=== PATIENT | female | born 2005 | race Caucasian/White ===

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

== ENCOUNTER 2024-01-18 23:12 | Emergency (ER) | payer BC, MEDICAID ==
[~2024-01-18] VITALS: Ht 165.1 cm; Wt 54.5 kg
[2024-01-19 00:44] VITALS: BP 125/77; PULSE 89; RESP 18; O2SAT 99
[2024-01-19] MEDS: LORazepam 1 MG tablet PO ONE (01:53)
[2024-01-19 02:24] VITALS: TEMP 97.4
== END 2024-01-19 02:26 | disposition home or self-care (01) ==
LOC: ER 23:13
DX: F41.9 Anxiety disorder, unspecified (principal); Z88.1 Allergy status to other antibiotic agents
CPT/HCPCS: 99283

== ENCOUNTER 2024-03-12 01:37 | Emergency (ER) | payer BC, MEDICAID ==
[~2024-03-12] VITALS: Ht 165.1 cm; Wt 54.5 kg
[2024-03-12 01:48] VITALS: BP 105/74; PULSE 85; RESP 16; TEMP 98; O2SAT 98
[2024-03-12] MEDS ORDERED: LORazepam 0.5 MG tablet PO PRN (01:55)
== END 2024-03-12 02:40 | disposition home or self-care (01) ==
LOC: ER 01:38
DX: R07.89 Other chest pain (principal); Z20.822 Contact with and (suspected) exposure to COVID-19; F41.9 Anxiety disorder, unspecified; Z88.1 Allergy status to other antibiotic agents
CPT/HCPCS: 36415; 71045; 87502; 87503; 87811; 93005; 99285